=== PATIENT | female | born 1990 | race Caucasian/White ===

== ENCOUNTER → 2021-11-02 12:45 | Outpatient (CLI) | payer BC, SELFPAY ==
--- NOTE | 2021-11-02 12:46 | CT_ITS ---
FINAL REPORT CLINICAL HISTORY: Right neck pain after head injury in march 2021. pt slipped hit back of head and had to have shellie since then right sided neck pain. FINDINGS: CT CERVICAL SPINE WITH Axial CT images were performed through the cervical spine after the administration of IV contrast. Coronal and sagittal reformats were submitted and reviewed. This study was performed with techniques to keep radiation doses as low as reasonably achievable (ALARA). Individualized dose reduction techniques using automated exposure control or adjustment of mA and/or kV according to the patient's size were employed. FINDINGS: There is no acute fracture or subluxation. The vertebral alignment is normal. The prevertebral soft tissues are unremarkable. No significant spinal or neural foraminal canal stenosis is seen. Disc spaces are preserved. The facets are normally aligned. Limited images of the lung apices are unremarkable. No mass or fluid collection identified. IMPRESSION: No acute fracture. Reviewed, Interpreted and Dictated by Matt Baez MD Transcribed by Shabbir Mccray Authenticated and [facility]
--- NOTE | 2021-11-02 13:24 | US_ITS ---
FINAL REPORT CLINICAL HISTORY: Thyroid enlargement FINDINGS: THYROID ULTRASOUND The right lobe of the thyroid measures 4.4 x 1.8 x 1.7 cm. The left lobe of the thyroid measures 3.6 x 1.3 x 1.2 cm. The parenchyma shows diffuse heterogeneity consistent with a TI-RADS 1. No dominant mass is seen. IMPRESSION: Diffusely heterogeneous thyroid probably due to diffuse goiter. No dominant mass. Reviewed, Interpreted and Dictated by Matt Baez MD Transcribed by Shabbir Mccray Authenticated and [facility]
== END ==
PROVIDERS: PCP Pediatrics; Visit Provider Family Medicine
DX: M54.2 Cervicalgia (principal); E04.1 Nontoxic single thyroid nodule
CPT/HCPCS: 72126; 76536; Q9967

== ENCOUNTER → 2021-11-03 18:30 | Outpatient (CLI) | payer BC, SELFPAY ==
[2021-11-03 20:03] LABS: Thyroid Stimulating Hormone 1.91 uIU/mL (0.465-4.68)
== END ==
PROVIDERS: PCP Family Medicine; Visit Provider Family Medicine
DX: E04.9 Nontoxic goiter, unspecified (principal)
CPT/HCPCS: 84443